=== PATIENT | male | born 1960 | race Caucasian/White ===

== ENCOUNTER 2016-09-09 13:06 | Inpatient (IN) | payer OTHER ==
[~2016-09-09] VITALS: Ht 172.7 cm; Wt 89.4 kg
[2016-09-09] MEDS ORDERED: fentaNYL PF VIAL 100 MCG/2 ML VIAL IV PRN ×2 (13:30→15:15)
[2016-09-09] MEDS ORDERED: fentaNYL PF VIAL 100 MCG/2 ML VIAL IV ONE ×2 (13:30→14:30)
--- NOTE | 2016-09-09 13:43 | RAD ---
Indication fall. Pain. AP oblique and lateral views of the right ankle were obtained. AP and lateral views of the remaining portion of the tibia and fibula were also obtained. There is a spiral, acute, traumatic fracture involving the distal tibial diaphysis. There is moderate distraction of fracture fragments. There is an oblique distracted fracture of the distal fibular diaphysis. The proximal tibia and fibula appear unremarkable. IMPRESSION: Distracted fractures of the distal tibial and fibular diaphysis.
[2016-09-09] MEDS ORDERED: IV NORMAL SALINE 1000ML BAG 1,000 ML IV SCH (15:00)
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
[2016-09-09 15:10] VITALS: BP 158/95
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
[2016-09-09] MEDS ORDERED: ONDANSETRON PF 4 MG/2 ML VIAL. IV PRN (15:15)
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
--- NOTE | 2016-09-09 15:37 | ACF ---
Admission Forms Criteria MUSCULOSKELETAL DISEASE GRG Clinical Indications for Admission to Inpatient Care (Place 'X' for any and all applicable criteria): Hospital admission is needed for appropriate care of the patient because of 1 or more of the following: [X ]I. Fracture, dislocation, or other musculoskeletal injury requiring inpatient care(medical) as indicated by 1 or more of the following(4)(5)(6)(7) [ ]a) Vertebral fracture requiring observation for instability or neurologic compromise (8) [ ]b) Compartment syndrome (proven or cannot be ruled out during observation level of care) (9) [ ]c) Limb-threatening injury [ ]d) Major injury requiring inpatient stabilization such as traction initiation or external fixation before internal fixation or closure of complex or open fracture [X ]e) Major injury requiring inpatient treatment after emergency or observation level care (as appropriate) [ ]f) Severe pain requiring acute inpatient management [ ]g) Injury with suspicion of abuse or neglect (eg., child, dependent elderly) [ ]II. Newly diagnosed or suspected bone, joint, or orthopedic device infection (e.g., osteomyelitis, septic arthritis) needing 1 or more of the following(1)(2)(3) [ ]a) IV antibiotics that cannot be initiated in other than inpatient setting (e.g., patient too unstable or home infusion not available) [ ]b) Device removal or replacement [ ]c) Bone or soft tissue debridement [ ]d) Joint drainage (drain placement or repetitive aspirations) [ ]III. Severe rheumatologic disease (e.g., systemic lupus erythematosus, rheumatoid arthritis) with complications or comorbidities (Also use Optimal Recovery Care Criteria or General Recovery Criteria as appropriate on the basis of predominant condition), including 1 or more of the following( 10)(11)(12)(13) [ ]a) Severe infection (e.g., PROPERTY ASSESSMENT MONITOR infection, sepsis) (14) [ ]b) Respiratory complications, including 1 or more of the following : [ ]i) Pleural effusion with respiratory compromise [ ]ii) Pulmonary hypertension with congestive failure [ ]iii) Respiratory failure [ ]iv) Pulmonary hemorrhage (15) [ ]c) Hematologic disease, including 1 or more of the following: [ ]i) Coagulopathy with bleeding [ ]ii) Thrombosis with hypercoagulable state [ ]iii) Thrombotic thrombocytopenic purpura [ ]d) Cerebritis with seizures, psychosis, or other severe abnormalities [ ]e) Vertebral destruction with monitoring needed for cervical myelopathy& possible respiratory compromise [ ]f) Exacerbation that requires inpatient treatment (e.g., intravenous immunosuppression) (16) [ ]g) Acute renal failure [ ]h) Cerebritis with seizures, psychosis, Altered mental status, or other neurologic abnormalities [ ]i) Pericardial effusion with tamponade [ ]j) Vertebral destruction, with monitoring needed for cervical myelopathy and possible respiratory compromise [ ]IV. Severe vasculitis with complications or comorbidities (Also use Optimal Recovery Care Criteria General Recovery Criteria as appropriate on the basis of predominant condition), including 1 or more of the following(11)(12)(17)(18)(19)(20) [ ]a) Exacerbation that requires inpatient treatment (e.g., intravenous immunosuppression) (19)(21) [ ]b) Pulmonary hemorrhage (15) [ ]c) PROPERTY ASSESSMENT MONITOR vasculitis with seizures, psychosis, Altered mental status that is severe or persistent, or other severe abnormalities (22) [ ]d) Cerebral infarction [ ]e) Gastrointestinal ischemia [ ]f) Gangrene or threatened amputation [ ]g) Renal failure (16) [ ]h) Other significant complications of vasculitis ( eg., tissue or organ ischemia, organ dysfunction ) [ ]V. Severe myopathy as indicated by 1 or more of the following (28)(29) [ ]a) New onset of airway compromise or inability to swallow [ ]b) Respiratory deterioration with observation needed for impending respiratory failure [ ]c) Exacerbation that requires inpatient treatment (e.g., intravenous immunosuppression) [ ]. Severe crystal gout (arthropathy) indicated by 1 or more of the following (23)(24) [ ]a) Severe pain requiring acute inpatient management [ ]b) Exacerbation that requires inpatient treatment (e.g., intravenous treatment) [ ]VII.Rhabdomyolysis and 1 or more of the following (25)(26)(27) [ ]a) Acute renal failure [ ]b) Need for intravenous hydration after emergency or observation level care (as appropriate) [ ]c) Inability to maintain oral hydration [ ]d) Change in mental status [ ]e) Electrolyte abnormality that remains after emergency or observation level care (as appropriate) [ ]VIII Post amputation complication, as indicated by ANY ONE of the following [ ]a) Infection [ ]b) Dehiscence [ ]c) Myodesis failure [ ]IX. Severe pain requiring acute inpatient management due to musculoskeletal condition [ ]X. Musculoskeletal Disease and ALL of the following: [ ]a) Symptom or finding for which emergency and observation care have failed or are not considered appropriate (Use General Criteria: Observation Care as appropriate) [ ]b) Presence of ANY ONE of the following [ ]i) A General Admission Criteria [ ]ii) A Pediatric General Admission Criteria The original [facility] [employer] content created by [facility] an [employer] has been revised. The portions of the content which have been revised are identified through the use of italic text or in bold, and [facility] has neither reviewed nor approved the modified material. All other unmodified content is copyright [facility] an [employer]. Please see references footnoted in the original [facility] [employer] edition 2016 Admission Criteria Met?: Yes ROBERTO DORSEY Sep 09, 2016 15:37
--- NOTE | 2016-09-09 15:37 | EKG ---
[facility] [address] [place] [address] Test Date: 2016-09-09 Test Time: 15:26:21 Pat Name: MILLIE DESIR Department: Room: Gender: M [employer] Operator: : [id number] Requested By: JORDEN ELIZABETH Order Number: [id number] Reading MD: Measurements Intervals [place] Rate: 98 P: 38 AK: 146 QRS: 28 QRSD: 90 T: 21 QT: 322 QTc: 413 Interpretive Statements SINUS RHYTHM RI6.01 Unconfirmed report No previous ECG available for comparison
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
[2016-09-09] MEDS ORDERED: BUPR200T2 PO (18:07)
[2016-09-09] MEDS ORDERED: ALBUTEROL SULFATE 2.5 MG/3 ML NEBU. NEB PRN (18:15)
[2016-09-09] MEDS ORDERED: ACETAMINOPHEN 325 MG TABLET. PO PRN (18:15)
[2016-09-09] MEDS ORDERED: hydrALAZINE 20 MG/ML VIAL. IVP PRN (18:15)
[2016-09-09] MEDS: IBUPROFEN 400 MG TABLET. PO PRN (18:25)
[2016-09-09] MEDS: MORPHINE SULFATE 4 MG/ML DISP.SYRIN. IV PRN (18:26)
[2016-09-09] MEDS: HYDROcodone/APAP 10/325 1 TAB TABLET PO PRN (18:27)
[2016-09-09 18:54] LABS: BASO % 0 % (0-3); EOS % 0 % (0-3); HEMOGLOBIN 15.3 g/dL (13.0-17.5); LYMPH # 1.3 x10^3/uL (1.0-4.8); LYMPH % 8 % (24-48); MEAN CORPUSCULAR HEMOGLOBIN 32 pg (25-35); MEAN CORPUSCULAR HGB CONC 35 g/dL (31-37); MEAN CORPUSCULAR VOLUME 93 fL (79-100); MONO % 14 % (0-9); NEUT % 78 % (31-73); PLATELET COUNT 278 x10^3/uL (140-400); RED BLOOD COUNT 4.72 x10^6/uL (4.30-5.70); RED CELL DISTRIBUTION WIDTH 12.4 % (11.5-14.5)
[2016-09-09 19:00] VITALS: BP 117/73
[2016-09-09 19:10] VITALS: BP 158/95
[2016-09-09 19:11] LABS: CALCIUM 9.1 mg/dL (8.5-10.1); CREATININE 1.1 mg/dL (0.7-1.3); GFR 69.8; POTASSIUM 4.3 mmol/L (3.5-5.1)
[2016-09-09 19:16] LABS: ALBUMIN 3.8 g/dL (3.4-5.0); ALBUMIN/GLOBULIN RATIO 1.1 (1.0-1.7); TOTAL BILIRUBIN 0.9 mg/dL (0.2-1.0); TOTAL PROTEIN 7.3 g/dL (6.4-8.2)
[2016-09-09 19:27] LABS: PLT ESTIMATE ADEQUATE (ADEQUATE)
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
[2016-09-09] MEDS ORDERED: ENOXAPARIN 40 MG/0.4 ML SYRINGE. SQ SCH (21:00)
[2016-09-09 23:00] VITALS: BP 131/71
[2016-09-10] VITALS (15 sets, daily range): BP systolic 105–149; BP diastolic 50–99
[2016-09-10 05:03] LABS: BASO % 0 % (0-3); EOS % 2 % (0-3); HEMATOCRIT 40.6 % (39.0-53.0); HEMOGLOBIN 13.7 g/dL (13.0-17.5); LYMPH # 2.1 x10^3/uL (1.0-4.8); LYMPH % 20 % (24-48); MEAN CORPUSCULAR HEMOGLOBIN 32 pg (25-35); MEAN CORPUSCULAR HGB CONC 34 g/dL (31-37); MEAN CORPUSCULAR VOLUME 95 fL (79-100); MONO % 19 % (0-9); NEUT % 59 % (31-73); PLATELET COUNT 234 x10^3/uL (140-400); RED BLOOD COUNT 4.25 x10^6/uL (4.30-5.70); RED CELL DISTRIBUTION WIDTH 12.3 % (11.5-14.5); WHITE BLOOD COUNT 10.9 x10^3/uL (4.0-11.0)
[2016-09-10 05:18] LABS: CALCIUM 8.3 mg/dL (8.5-10.1); GFR 77.9
[2016-09-10] MEDS: MORPHINE SULFATE 4 MG/ML DISP.SYRIN. IV PRN ×5 (05:42→20:41)
[2016-09-10] MEDS ORDERED: MORPHINE SULFATE 2 MG/ML DISP.SYRIN. IV PRN (07:00)
[2016-09-10] MEDS ORDERED: LIDOCAINE 1% 1 ML SYRINGE. ID PRN (07:00)
[2016-09-10] MEDS ORDERED: ONDANSETRON PF 4 MG/2 ML VIAL. IV PRN (07:00)
[2016-09-10] MEDS ORDERED: HYDROmorphone 2 MG/ML VIAL IV PRN (07:00)
[2016-09-10] MEDS ORDERED: PROCHLORPERAZINE 10 MG/2 ML VIAL. IV PRN (07:00)
[2016-09-10] MEDS ORDERED: fentaNYL PF VIAL 100 MCG/2 ML VIAL IV PRN ×2 (07:00)
[2016-09-10] MEDS ORDERED: IV RINGERS,LACTATED 1000ML 1,000 ML IV SCH (07:00)
[2016-09-10] MEDS ORDERED: BUPIVACAINE MPF 0.5% 30 ML VIAL. ONE (07:35)
[2016-09-10] MEDS ORDERED: LIDOCAINE 1% PF 30 ML VIAL. ONE (07:35)
[2016-09-10] MEDS ORDERED: FAMOTIDINE 20 MG/2 ML VIAL ONE (10:08)
[2016-09-10] MEDS ORDERED: DEXAMETHASONE SOD PHOS 20 MG/5 ML VIAL. ONE (10:08)
[2016-09-10] MEDS ORDERED: fentaNYL PF VIAL 100 MCG/2 ML VIAL ONE (10:08)
[2016-09-10] MEDS ORDERED: ONDANSETRON PF 4 MG/2 ML VIAL. ONE (10:08)
[2016-09-10] MEDS ORDERED: PROPOFOL 20 ML IV ONE (10:08)
[2016-09-10] MEDS ORDERED: MIDAZOLAM HCL/PF 2 MG/2 ML VIAL. ONE (10:08)
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
[2016-09-10] MEDS ORDERED: oxyCODONE/APAP 5/325 1 TAB TABLET PO PRN (10:45)
[2016-09-10] MEDS ORDERED: MORPHINE SULFATE 10 MG/ML VIAL. ONE (11:16)
--- NOTE | 2016-09-10 12:04 | PDOC ---
PROGRESS NOTES Chief Complaint Chief Complaint 1. R Tibfib fracture, closed 2. Chest wall contusio 3. Head injury 4. Laceration of eyebrow 5. Laceration of scalp 6. Depression History of Present Illness History of Present Illness pt is resting comfortably in bed this morning, he denies any complaints, his surgery is planned for this morning, fundraising officer is in room with him Vitals Vitals Vital Signs Date Time Temp Pulse Resp B/P (MAP) Pulse Ox O2 Delivery O2 Flow Rate FiO2 09/10/16 11:00 98.5 90 20 124/91 (102) 97 Nasal Cannula 1.0 98.5 Physical Exam General: Alert, Oriented X3, Cooperative, No acute distress Heart: Regular rate, No murmurs Lungs: Clear Abdomen: Normal bowel sounds, Soft, No tenderness Extremities: No clubbing, No cyanosis, No edema Skin: No rashes, No breakdown, No significant lesion Labs LABS Laboratory Tests Test 09/09/16 18:00 09/09/16 20:40 09/10/16 04:20 09/10/16 07:41 White Blood Count 17.0 x10^3/uL (4.0-11.0) 10.9 x10^3/uL (4.0-11.0) Red Blood Count 4.72 x10^6/uL (4.30-5.70) 4.25 x10^6/uL (4.30-5.70) Hemoglobin 15.3 g/dL (13.0-17.5) 13.7 g/dL (13.0-17.5) Hematocrit 44.0 % (39.0-53.0) 40.6 % (39.0-53.0) Mean Corpuscular Volume 93 fL (79-100) 95 fL (79-100) Mean Corpuscular Hemoglobin 32 pg (25-35) 32 pg (25-35) Mean Corpuscular Hemoglobin Concent 35 g/dL (31-37) 34 g/dL (31-37) Red Cell Distribution Width 12.4 % (11.5-14.5) 12.3 % (11.5-14.5) Platelet Count 278 x10^3/uL (140-400) 234 x10^3/uL (140-400) Neutrophils (%) (Auto) 78 % (31-73) 59 % (31-73) Lymphocytes (%) (Auto) 8 % (24-48) 20 % (24-48) Monocytes (%) (Auto) 14 % (0-9) 19 % (0-9) Eosinophils (%) (Auto) 0 % (0-3) 2 % (0-3) Basophils (%) (Auto) 0 % (0-3) 0 % (0-3) Neutrophils # (Auto) 13.3 x10^3uL (1.8-7.7) 6.5 x10^3uL (1.8-7.7) Lymphocytes # (Auto) 1.3 x10^3/uL (1.0-4.8) 2.1 x10^3/uL (1.0-4.8) Monocytes # (Auto) 2.3 x10^3/uL (0.0-1.1) 2.1 x10^3/uL (0.0-1.1) Eosinophils # (Auto) 0.0 x10^3/uL (0.0-0.7) 0.2 x10^3/uL (0.0-0.7) Basophils # (Auto) 0.0 x10^3/uL (0.0-0.2) 0.0 x10^3/uL (0.0-0.2) Segmented Neutrophils % 80 % (35-66) Band Neutrophils % 1 % (0-9) Lymphocytes % 10 % (24-48) Monocytes % 9 % (0-10) Platelet Estimate Adequate (ADEQUATE) Sodium Level 143 mmol/L (136-145) 142 mmol/L (136-145) Potassium Level 4.3 mmol/L (3.5-5.1) 4.0 mmol/L (3.5-5.1) Chloride Level 105 mmol/L (98-107) 106 mmol/L (98-107) Carbon Dioxide Level 30 mmol/L (21-32) 32 mmol/L (21-32) Anion Gap 8 (6-14) 4 (6-14) Blood Urea Nitrogen 15 mg/dL (8-26) 16 mg/dL (8-26) Creatinine 1.1 mg/dL (0.7-1.3) 1.0 mg/dL (0.7-1.3) Estimated GFR (Cockcroft-Gault) 69.8 77.9 BUN/Creatinine Ratio 14 (6-20) Glucose Level 113 mg/dL (70-99) 114 mg/dL (70-99) Calcium Level 9.1 mg/dL (8.5-10.1) 8.3 mg/dL (8.5-10.1) Total Bilirubin 0.9 mg/dL (0.2-1.0) Aspartate Amino Transf (AST/SGOT) 80 U/L (15-37) Alanine Aminotransferase (ALT/SGPT) 78 U/L (16-63) Alkaline Phosphatase 101 U/L (46-116) Total Protein 7.3 g/dL (6.4-8.2) Albumin 3.8 g/dL (3.4-5.0) Albumin/Globulin Ratio 1.1 (1.0-1.7) Glucose (Fingerstick) 117 mg/dL (70-99) 109 mg/dL (70-99) Review of Systems Review of Systems denies nausea, vomiting, or HORNE Assessment and Plan Assessmemt and Plan Assessment 1. R Tibfib fracture, closed 2. Chest wall contusio 3. Head injury 4. Laceration of eyebrow 5. Laceration of scalp 6. Depression Plan 1. Surgery for fracture today 2. Lovenox for DVT prophylaxis 3. Continue pain management 4. Appreciate subspecialty input 5. Continue home meds 6. Discussed plan of care with nursing 7. PT/OT 8. Recheck CBC and BMP tomorrow 9. Reviewed imaging: CXR and head CT showed no acute processes, R ankle and tib/ fib XR showed distracted fractures of the distal tibial and fibular diaphysis. 10. Zofran prn for nausea Problems: Comment Review of Relevant I have reviewed the following items sirena (where applicable) has been applied. Labs Laboratory Tests Test 09/09/16 18:00 09/09/16 20:40 09/10/16 04:20 09/10/16 07:41 White Blood Count 17.0 x10^3/uL (4.0-11.0) 10.9 x10^3/uL (4.0-11.0) Red Blood Count 4.72 x10^6/uL (4.30-5.70) 4.25 x10^6/uL (4.30-5.70) Hemoglobin 15.3 g/dL (13.0-17.5) 13.7 g/dL (13.0-17.5) Hematocrit 44.0 % (39.0-53.0) 40.6 % (39.0-53.0) Mean Corpuscular Volume 93 fL (79-100) 95 fL (79-100) Mean Corpuscular Hemoglobin 32 pg (25-35) 32 pg (25-35) Mean Corpuscular Hemoglobin Concent 35 g/dL (31-37) 34 g/dL (31-37) Red Cell Distribution Width 12.4 % (11.5-14.5) 12.3 % (11.5-14.5) Platelet Count 278 x10^3/uL (140-400) 234 x10^3/uL (140-400) Neutrophils (%) (Auto) 78 % (31-73) 59 % (31-73) Lymphocytes (%) (Auto) 8 % (24-48) 20 % (24-48) Monocytes (%) (Auto) 14 % (0-9) 19 % (0-9) Eosinophils (%) (Auto) 0 % (0-3) 2 % (0-3) Basophils (%) (Auto) 0 % (0-3) 0 % (0-3) Neutrophils # (Auto) 13.3 x10^3uL (1.8-7.7) 6.5 x10^3uL (1.8-7.7) Lymphocytes # (Auto) 1.3 x10^3/uL (1.0-4.8) 2.1 x10^3/uL (1.0-4.8) Monocytes # (Auto) 2.3 x10^3/uL (0.0-1.1) 2.1 x10^3/uL (0.0-1.1) Eosinophils # (Auto) 0.0 x10^3/uL (0.0-0.7) 0.2 x10^3/uL (0.0-0.7) Basophils # (Auto) 0.0 x10^3/uL (0.0-0.2) 0.0 x10^3/uL (0.0-0.2) Segmented Neutrophils % 80 % (35-66) Band Neutrophils % 1 % (0-9) Lymphocytes % 10 % (24-48) Monocytes % 9 % (0-10) Platelet Estimate Adequate (ADEQUATE) Sodium Level 143 mmol/L (136-145) 142 mmol/L (136-145) Potassium Level 4.3 mmol/L (3.5-5.1) 4.0 mmol/L (3.5-5.1) Chloride Level 105 mmol/L (98-107) 106 mmol/L (98-107) Carbon Dioxide Level 30 mmol/L (21-32) 32 mmol/L (21-32) Anion Gap 8 (6-14) 4 (6-14) Blood Urea Nitrogen 15 mg/dL (8-26) 16 mg/dL (8-26) Creatinine 1.1 mg/dL (0.7-1.3) 1.0 mg/dL (0.7-1.3) Estimated GFR (Cockcroft-Gault) 69.8 77.9 BUN/Creatinine Ratio 14 (6-20) Glucose Level 113 mg/dL (70-99) 114 mg/dL (70-99) Calcium Level 9.1 mg/dL (8.5-10.1) 8.3 mg/dL (8.5-10.1) Total Bilirubin 0.9 mg/dL (0.2-1.0) Aspartate Amino Transf (AST/SGOT) 80 U/L (15-37) Alanine Aminotransferase (ALT/SGPT) 78 U/L (16-63) Alkaline Phosphatase 101 U/L (46-116) Total Protein 7.3 g/dL (6.4-8.2) Albumin 3.8 g/dL (3.4-5.0) Albumin/Globulin Ratio 1.1 (1.0-1.7) Glucose (Fingerstick) 117 mg/dL (70-99) 109 mg/dL (70-99) Laboratory Tests Test 09/09/16 18:00 09/09/16 20:40 09/10/16 04:20 09/10/16 07:41 White Blood Count 17.0 x10^3/uL (4.0-11.0) 10.9 x10^3/uL (4.0-11.0) Red Blood Count 4.72 x10^6/uL (4.30-5.70) 4.25 x10^6/uL (4.30-5.70) Hemoglobin 15.3 g/dL (13.0-17.5) 13.7 g/dL (13.0-17.5) Hematocrit 44.0 % (39.0-53.0) 40.6 % (39.0-53.0) Mean Corpuscular Volume 93 fL (79-100) 95 fL (79-100) Mean Corpuscular Hemoglobin 32 pg (25-35) 32 pg (25-35) Mean Corpuscular Hemoglobin Concent 35 g/dL (31-37) 34 g/dL (31-37) Red Cell Distribution Width 12.4 % (11.5-14.5) 12.3 % (11.5-14.5) Platelet Count 278 x10^3/uL (140-400) 234 x10^3/uL (140-400) Neutrophils (%) (Auto) 78 % (31-73) 59 % (31-73) Lymphocytes (%) (Auto) 8 % (24-48) 20 % (24-48) Monocytes (%) (Auto) 14 % (0-9) 19 % (0-9) Eosinophils (%) (Auto) 0 % (0-3) 2 % (0-3) Basophils (%) (Auto) 0 % (0-3) 0 % (0-3) Neutrophils # (Auto) 13.3 x10^3uL (1.8-7.7) 6.5 x10^3uL (1.8-7.7) Lymphocytes # (Auto) 1.3 x10^3/uL (1.0-4.8) 2.1 x10^3/uL (1.0-4.8) Monocytes # (Auto) 2.3 x10^3/uL (0.0-1.1) 2.1 x10^3/uL (0.0-1.1) Eosinophils # (Auto) 0.0 x10^3/uL (0.0-0.7) 0.2 x10^3/uL (0.0-0.7) Basophils # (Auto) 0.0 x10^3/uL (0.0-0.2) 0.0 x10^3/uL (0.0-0.2) Segmented Neutrophils % 80 % (35-66) Band Neutrophils % 1 % (0-9) Lymphocytes % 10 % (24-48) Monocytes % 9 % (0-10) Platelet Estimate Adequate (ADEQUATE) Sodium Level 143 mmol/L (136-145) 142 mmol/L (136-145) Potassium Level 4.3 mmol/L (3.5-5.1) 4.0 mmol/L (3.5-5.1) Chloride Level 105 mmol/L (98-107) 106 mmol/L (98-107) Carbon Dioxide Level 30 mmol/L (21-32) 32 mmol/L (21-32) Anion Gap 8 (6-14) 4 (6-14) Blood Urea Nitrogen 15 mg/dL (8-26) 16 mg/dL (8-26) Creatinine 1.1 mg/dL (0.7-1.3) 1.0 mg/dL (0.7-1.3) Estimated GFR (Cockcroft-Gault) 69.8 77.9 BUN/Creatinine Ratio 14 (6-20) Glucose Level 113 mg/dL (70-99) 114 mg/dL (70-99) Calcium Level 9.1 mg/dL (8.5-10.1) 8.3 mg/dL (8.5-10.1) Total Bilirubin 0.9 mg/dL (0.2-1.0) Aspartate Amino Transf (AST/SGOT) 80 U/L (15-37) Alanine Aminotransferase (ALT/SGPT) 78 U/L (16-63) Alkaline Phosphatase 101 U/L (46-116) Total Protein 7.3 g/dL (6.4-8.2) Albumin 3.8 g/dL (3.4-5.0) Albumin/Globulin Ratio 1.1 (1.0-1.7) Glucose (Fingerstick) 117 mg/dL (70-99) 109 mg/dL (70-99) Medications Current Medications Fentanyl Citrate (Fentanyl 2ml Vial) 100 mcg 1X ONCE IV Last administered on t 13:41; Start 09/09/16 at 13:30; Stop 09/09/16 at 13:31; Status DC Fentanyl Citrate (Fentanyl 2ml Vial) 50 mcg PRN Q15MIN PRN IV PAIN GREATER THAN 3/10; Start 09/09/16 at 13:30; Stop 09/10/16 at 13:29 Fentanyl Citrate (Fentanyl 2ml Vial) 100 mcg 1X ONCE IV Last administered on 14:25; Start 09/09/16 at 14:30; Stop 09/09/16 at 14:31; Status DC Sodium Chloride 1,000 ml @ 100 mls/hr Q10H IV Last administered on 09/09/16 15 :50; Start 09/09/16 at 15:00; Stop 09/10/16 at 00:59; Status DC Ondansetron HCl (Zofran) 4 mg PRN Q8HRS PRN IV NAUSEA/VOMITING; Start 09/09/16 at 15:15; Stop 09/10/16 at 15:14 Fentanyl Citrate (Fentanyl 2ml Vial) 50 mcg PRN Q2HR PRN IV PAIN Last administered on 09/09/16 17:25; Start 09/09/16 at 15:15; Stop 09/09/16 at 18:03; Status DC Ondansetron HCl (Zofran) 4 mg PRN Q6HRS PRN IV NAUSEA/VOMITING; Start 09/10/16 at 07:00; Stop 09/11/16 at 06:59 Fentanyl Citrate (Fentanyl 2ml Vial) 25 mcg PRN Q5MIN PRN IV MILD PAIN; Start 09/10/16 at 07:00; Stop 09/11/16 at 06:59 Fentanyl Citrate (Fentanyl 2ml Vial) 50 mcg PRN Q5MIN PRN IV MODERATE PAIN; Start 09/10/16 at 07:00; Stop 09/11/16 at 06:59 Morphine Sulfate 1 mg PRN Q10MIN PRN IV SEVERE PAIN; Start 09/10/16 at 07:00; Stop 09/11/16 at 06:59 Ringer's Solution 1,000 ml @ 30 mls/hr Q24H IV ; Start 09/10/16 at 07:00; Stop 09/10/16 at 18:59 Lidocaine HCl 2 ml PRN 1X PRN ID PRIOR TO IV START; Start 09/10/16 at 07:00; Stop 09/11/16 at 06:59 Hydromorphone HCl (Dilaudid) 0.5 mg PRN Q10MIN PRN IV SEV PAIN, Second choice; Start 09/10/16 at 07:00; Stop 09/11/16 at 06:59 Prochlorperazine Edisylate (Compazine) 5 mg PACU PRN PRN IV NAUSEA, MRX1; Start 09/10/16 at 07:00; Stop 09/11/16 at 06:59 Ibuprofen (Motrin) 400 mg PRN Q6HRS PRN PO INFLAMMATION Last administered on 18:25; Start 09/09/16 at 18:00 Acetaminophen/ Hydrocodone Bitart (Lortab 10/325) 1 tab PRN Q6HRS PRN PO PAIN Last administered on 09/09/16 18:27; Start 09/09/16 at 18:00 Morphine Sulfate 4 mg PRN Q2HR PRN IV PAIN Last administered on 09/10/16 08:52 ; Start 09/09/16 at 18:00 Acetaminophen (Tylenol) 325 mg PRN Q6HRS PRN PO MILD PAIN / TEMP; Start at 18:15 Hydralazine HCl (Apresoline) 10 mg PRN Q4HRS PRN IVP ELEVATED BP, SEE COMMENTS ; Start 09/09/16 at 18:15 Ondansetron HCl (Zofran) 4 mg PRN Q8HRS PRN IV NAUSEA/VOMITING; Start 09/09/16 at 18:15 Albuterol Sulfate (Ventolin Neb Soln) 2.5 mg PRN Q4HRS PRN NEB SHORTNESS OF BREATH; Start 09/09/16 at 18:15 Enoxaparin Sodium (Lovenox 40mg Syringe) 40 mg Q24H SQ ; Start 09/09/16 at 21:00 ; Status Cancel Cefazolin Sodium 50 ml @ 100 mls/hr 1X ONCE IV Last administered on 09/10/16 10:57; Start 09/10/16 at 06:00; Stop 09/10/16 at 06:29; Status DC Lidocaine HCl 30 ml STK-MED ONCE .ROUTE Last administered on 09/10/16 11:16; Start 09/10/16 at 07:35; Stop 09/10/16 at 07:36; Status DC Bupivacaine HCl (Sensorcaine Mpf 0.5%) 30 ml STK-MED ONCE .ROUTE Last administered on 09/10/16t 11:16; Start 09/10/16 at 07:35; Stop 09/10/16 at 07:36; Status DC Dexamethasone Sodium Phosphate (Decadron) 20 mg STK-MED ONCE .ROUTE ; Start 09/10 at 10:08; Stop 09/10/16 at 10:09; Status DC Famotidine (Pepcid) 20 mg STK-MED ONCE .ROUTE ; Start 09/10/16 at 10:08; Stop 09/10/16 at 10:09; Status DC Ondansetron HCl (Zofran) 4 mg STK-MED ONCE .ROUTE ; Start 09/10/16 at 10:08; Stop 09/10/16 at 10:09; Status DC Propofol 20 ml @ As Directed STK-MED ONCE IV ; Start 09/10/16 at 10:08; Stop 09/10 at 10:09; Status DC Midazolam HCl (Versed) 2 mg STK-MED ONCE .ROUTE ; Start 09/10/16 at 10:08; Stop 09/10/16 at 10:09; Status DC Fentanyl Citrate (Fentanyl 2ml Vial) 100 mcg STK-MED ONCE .ROUTE ; Start at 10:08; Stop 09/10/16 at 10:09; Status DC Cefazolin Sodium 50 ml @ As Directed STK-MED ONCE IV ; Start 09/10/16 at 10:29; Stop 09/10/16 at 10:30; Status DC Oxycodone/ Acetaminophen (Percocet 5/325) 1 tab PRN Q4HRS PRN PO PAIN; Start at 10:45 Senna/Docusate Sodium (Senna Plus) 1 tab PRN BID PRN PO CONSTIPATION; Start 09/10/16 at 10:45 Enoxaparin Sodium (Lovenox 40mg Syringe) 40 mg Q24H SQ ; Start 09/11/16 at 11:00 Cefazolin Sodium/ Dextrose 50 ml @ 100 mls/hr Q6H IV ; Start 09/10/16 at 16:00; Stop 09/11/16 at 04:29 Morphine Sulfate 10 mg STK-MED ONCE .ROUTE ; Start 09/10/16 at 11:16; Stop 7/8/ 17 at 11:17; Status DC Active Scripts Active Reported Wellbutrin Sr (Bupropion Hcl) 200 Mg Tablet.er 400 Mg PO DAILY Vitals/I & O Vital Sign - Last 24 Hours 09/09/16 09/09/16 09/09/16 09/09/16 13:06 13:40 13:41 14:10 Temp 98.4 98.4 Pulse 96 98 96 Resp 18 26 18 22 B/P (MAP) 160/98 (118) 139/84 (102) 156/96 (116) Pulse Ox 97 100 99 O2 Delivery Room Air 09/09/16 09/09/16 09/09/16 09/09/16 14:11 14:25 14:40 14:45 Pulse 94 98 Resp 16 16 16 33 B/P (MAP) 169/91 (117) 153/88 (109) Pulse Ox 98 99 09/09/16 09/09/16 09/09/16 09/09/16 15:10 17:10 17:15 17:25 Temp 98.3 98.3 Pulse 97 Resp 20 B/P (MAP) 158/95 (116) Pulse Ox 94 O2 Delivery Nasal Cannula Room Air Nasal Cannula Room Air O2 Flow Rate 1.0 1.0 09/09/16 09/09/16 09/09/16 09/09/16 18:26 18:27 18:27 18:56 Resp 16 Pulse Ox 97 O2 Delivery Nasal Cannula Nasal Cannula Nasal Cannula Nasal Cannula O2 Flow Rate 1.0 1.0 09/09/16 09/09/16 09/09/16 09/09/16 19:00 19:10 19:27 20:00 Temp 99.1 98.3 99.1 98.3 Pulse 92 97 Resp 18 16 B/P (MAP) 117/73 (88) 158/95 (116) Pulse Ox 96 94 97 O2 Delivery Nasal Cannula Nasal Cannula Nasal Cannula Nasal Cannula O2 Flow Rate 1.0 1.0 1.0 1.0 09/09/16 09/09/16 09/10/16 09/10/16 20:27 23:00 03:05 06:36 Temp 98.5 98.4 98.5 98.4 Pulse 79 82 Resp 18 16 16 B/P (MAP) 131/71 (91) 135/84 (101) Pulse Ox 97 95 94 94 O2 Delivery Room Air Nasal Cannula Nasal Cannula Nasal Cannula O2 Flow Rate 1.0 1.0 09/10/16 09/10/16 09/10/16 09/10/16 07:00 08:30 08:52 10:42 Temp 98.6 99.4 98.6 99.4 Pulse 86 88 Resp 20 16 20 B/P (MAP) 124/75 (91) 117/69 Pulse Ox 92 99 O2 Delivery Nasal Cannula Room Air Room Air Room Air O2 Flow Rate 1.0 09/10/16 11:00 Temp 98.5 98.5 Pulse 90 Resp 20 B/P (MAP) 124/91 (102) Pulse Ox 97 O2 Delivery Nasal Cannula O2 Flow Rate 1.0 Intake and Output 09/09/16 09/09/16 09/10/16 15:00 23:00 07:00 Intake Total 200 ml Balance 200 ml RUSTY MILLS III DO Sep 10, 2016 12:04
[2016-09-10] MEDS: IBUPROFEN 400 MG TABLET. PO PRN (16:21)
[2016-09-10] MEDS: ONDANSETRON PF 4 MG/2 ML VIAL. IV PRN (16:21)
[2016-09-11 03:00] VITALS: BP 91/45
[2016-09-11 05:25] LABS: BASO % 0 % (0-3); EOS % 0 % (0-3); HEMATOCRIT 35.3 % (39.0-53.0); HEMOGLOBIN 12.5 g/dL (13.0-17.5); LYMPH # 1.4 x10^3/uL (1.0-4.8); LYMPH % 11 % (24-48); MEAN CORPUSCULAR HEMOGLOBIN 33 pg (25-35); MEAN CORPUSCULAR HGB CONC 35 g/dL (31-37); MEAN CORPUSCULAR VOLUME 93 fL (79-100); MONO % 17 % (0-9); NEUT % 72 % (31-73); PLATELET COUNT 231 x10^3/uL (140-400); RED BLOOD COUNT 3.79 x10^6/uL (4.30-5.70); RED CELL DISTRIBUTION WIDTH 12.2 % (11.5-14.5); WHITE BLOOD COUNT 12.9 x10^3/uL (4.0-11.0)
[2016-09-11 05:58] LABS: CALCIUM 9.1 mg/dL (8.5-10.1); CREATININE 0.9 mg/dL (0.7-1.3); GFR 87.9; POTASSIUM 4.8 mmol/L (3.5-5.1)
[2016-09-11] MEDS: HYDROcodone/APAP 10/325 1 TAB TABLET PO PRN (05:58)
[2016-09-11 07:00] VITALS: BP 106/73
[2016-09-11] MEDS: MORPHINE SULFATE 4 MG/ML DISP.SYRIN. IV PRN (08:10)
[2016-09-11] MEDS: IBUPROFEN 400 MG TABLET. PO PRN ×3 (08:10→20:45)
[2016-09-11] MEDS: SENNOSIDES/DOCUSATE 8.6/50MG TABLET. PO PRN (09:52)
[2016-09-11] MEDS: oxyCODONE/APAP 5/325 1 TAB TABLET PO PRN ×4 (09:53→22:19)
--- NOTE | 2016-09-11 09:53 | PDOC ---
ORTHO PROGRESS NOTES Subjective Pain doing ok, using IV. No other complaints. Vitals Vital Signs Date Time Temp Pulse Resp B/P (MAP) Pulse Ox O2 Delivery O2 Flow Rate FiO2 09/11/16 08:48 16 Room Air 09/11/16 07:00 97.3 89 106/73 (84) 95 97.3 09/11/16 03:00 3.0 Labs Laboratory Tests Test 09/09/16 18:00 09/09/16 18:30 09/09/16 20:40 09/10/16 04:20 White Blood Count 17.0 x10^3/uL (4.0-11.0) 10.9 x10^3/uL (4.0-11.0) Red Blood Count 4.72 x10^6/uL (4.30-5.70) 4.25 x10^6/uL (4.30-5.70) Hemoglobin 15.3 g/dL (13.0-17.5) 13.7 g/dL (13.0-17.5) Hematocrit 44.0 % (39.0-53.0) 40.6 % (39.0-53.0) Mean Corpuscular Volume 93 fL (79-100) 95 fL (79-100) Mean Corpuscular Hemoglobin 32 pg (25-35) 32 pg (25-35) Mean Corpuscular Hemoglobin Concent 35 g/dL (31-37) 34 g/dL (31-37) Red Cell Distribution Width 12.4 % (11.5-14.5) 12.3 % (11.5-14.5) Platelet Count 278 x10^3/uL (140-400) 234 x10^3/uL (140-400) Neutrophils (%) (Auto) 78 % (31-73) 59 % (31-73) Lymphocytes (%) (Auto) 8 % (24-48) 20 % (24-48) Monocytes (%) (Auto) 14 % (0-9) 19 % (0-9) Eosinophils (%) (Auto) 0 % (0-3) 2 % (0-3) Basophils (%) (Auto) 0 % (0-3) 0 % (0-3) Neutrophils # (Auto) 13.3 x10^3uL (1.8-7.7) 6.5 x10^3uL (1.8-7.7) Lymphocytes # (Auto) 1.3 x10^3/uL (1.0-4.8) 2.1 x10^3/uL (1.0-4.8) Monocytes # (Auto) 2.3 x10^3/uL (0.0-1.1) 2.1 x10^3/uL (0.0-1.1) Eosinophils # (Auto) 0.0 x10^3/uL (0.0-0.7) 0.2 x10^3/uL (0.0-0.7) Basophils # (Auto) 0.0 x10^3/uL (0.0-0.2) 0.0 x10^3/uL (0.0-0.2) Segmented Neutrophils % 80 % (35-66) Band Neutrophils % 1 % (0-9) Lymphocytes % 10 % (24-48) Monocytes % 9 % (0-10) Platelet Estimate Adequate (ADEQUATE) Sodium Level 143 mmol/L (136-145) 142 mmol/L (136-145) Potassium Level 4.3 mmol/L (3.5-5.1) 4.0 mmol/L (3.5-5.1) Chloride Level 105 mmol/L (98-107) 106 mmol/L (98-107) Carbon Dioxide Level 30 mmol/L (21-32) 32 mmol/L (21-32) Anion Gap 8 (6-14) 4 (6-14) Blood Urea Nitrogen 15 mg/dL (8-26) 16 mg/dL (8-26) Creatinine 1.1 mg/dL (0.7-1.3) 1.0 mg/dL (0.7-1.3) Estimated GFR (Cockcroft-Gault) 69.8 77.9 BUN/Creatinine Ratio 14 (6-20) Glucose Level 113 mg/dL (70-99) 114 mg/dL (70-99) Calcium Level 9.1 mg/dL (8.5-10.1) 8.3 mg/dL (8.5-10.1) Total Bilirubin 0.9 mg/dL (0.2-1.0) Aspartate Amino Transf (AST/SGOT) 80 U/L (15-37) Alanine Aminotransferase (ALT/SGPT) 78 U/L (16-63) Alkaline Phosphatase 101 U/L (46-116) Total Protein 7.3 g/dL (6.4-8.2) Albumin 3.8 g/dL (3.4-5.0) Albumin/Globulin Ratio 1.1 (1.0-1.7) Nasal Screen MRSA (PCR) Negative (Negative) Glucose (Fingerstick) 117 mg/dL (70-99) Test 09/10/16 07:41 09/10/16 13:33 09/10/16 17:03 09/10/16 20:22 Glucose (Fingerstick) 109 mg/dL (70-99) 128 mg/dL (70-99) 135 mg/dL (70-99) 145 mg/dL (70-99) Test 09/11/16 04:40 09/11/16 07:13 White Blood Count 12.9 x10^3/uL (4.0-11.0) Red Blood Count 3.79 x10^6/uL (4.30-5.70) Hemoglobin 12.5 g/dL (13.0-17.5) Hematocrit 35.3 % (39.0-53.0) Mean Corpuscular Volume 93 fL (79-100) Mean Corpuscular Hemoglobin 33 pg (25-35) Mean Corpuscular Hemoglobin Concent 35 g/dL (31-37) Red Cell Distribution Width 12.2 % (11.5-14.5) Platelet Count 231 x10^3/uL (140-400) Neutrophils (%) (Auto) 72 % (31-73) Lymphocytes (%) (Auto) 11 % (24-48) Monocytes (%) (Auto) 17 % (0-9) Eosinophils (%) (Auto) 0 % (0-3) Basophils (%) (Auto) 0 % (0-3) Neutrophils # (Auto) 9.3 x10^3uL (1.8-7.7) Lymphocytes # (Auto) 1.4 x10^3/uL (1.0-4.8) Monocytes # (Auto) 2.2 x10^3/uL (0.0-1.1) Eosinophils # (Auto) 0.0 x10^3/uL (0.0-0.7) Basophils # (Auto) 0.0 x10^3/uL (0.0-0.2) Sodium Level 139 mmol/L (136-145) Potassium Level 4.8 mmol/L (3.5-5.1) Chloride Level 103 mmol/L (98-107) Carbon Dioxide Level 28 mmol/L (21-32) Anion Gap 8 (6-14) Blood Urea Nitrogen 15 mg/dL (8-26) Creatinine 0.9 mg/dL (0.7-1.3) Estimated GFR (Cockcroft-Gault) 87.9 Glucose Level 129 mg/dL (70-99) Calcium Level 9.1 mg/dL (8.5-10.1) Glucose (Fingerstick) 142 mg/dL (70-99) Laboratory Tests Test 09/10/16 13:33 09/10/16 17:03 09/10/16 20:22 09/11/16 04:40 Glucose (Fingerstick) 128 mg/dL (70-99) 135 mg/dL (70-99) 145 mg/dL (70-99) White Blood Count 12.9 x10^3/uL (4.0-11.0) Red Blood Count 3.79 x10^6/uL (4.30-5.70) Hemoglobin 12.5 g/dL (13.0-17.5) Hematocrit 35.3 % (39.0-53.0) Mean Corpuscular Volume 93 fL (79-100) Mean Corpuscular Hemoglobin 33 pg (25-35) Mean Corpuscular Hemoglobin Concent 35 g/dL (31-37) Red Cell Distribution Width 12.2 % (11.5-14.5) Platelet Count 231 x10^3/uL (140-400) Neutrophils (%) (Auto) 72 % (31-73) Lymphocytes (%) (Auto) 11 % (24-48) Monocytes (%) (Auto) 17 % (0-9) Eosinophils (%) (Auto) 0 % (0-3) Basophils (%) (Auto) 0 % (0-3) Neutrophils # (Auto) 9.3 x10^3uL (1.8-7.7) Lymphocytes # (Auto) 1.4 x10^3/uL (1.0-4.8) Monocytes # (Auto) 2.2 x10^3/uL (0.0-1.1) Eosinophils # (Auto) 0.0 x10^3/uL (0.0-0.7) Basophils # (Auto) 0.0 x10^3/uL (0.0-0.2) Sodium Level 139 mmol/L (136-145) Potassium Level 4.8 mmol/L (3.5-5.1) Chloride Level 103 mmol/L (98-107) Carbon Dioxide Level 28 mmol/L (21-32) Anion Gap 8 (6-14) Blood Urea Nitrogen 15 mg/dL (8-26) Creatinine 0.9 mg/dL (0.7-1.3) Estimated GFR (Cockcroft-Gault) 87.9 Glucose Level 129 mg/dL (70-99) Calcium Level 9.1 mg/dL (8.5-10.1) Test 09/11/16 07:13 Glucose (Fingerstick) 142 mg/dL (70-99) Notes A and A in bed RLE: compartments soft, no pain with PROM wiggles toes, SITLT Assessment and Plan WBAT with walker, PT/OT lovenox percocet, try to wean IV pain meds likely ok to go tomorrow RIGOBERTO ELLIOTT II, MD Sep 11, 2016 09:53
[2016-09-11] MEDS: buPROPion SR 100 MG TABLET.SA. PO SCH (10:48)
[2016-09-11] MEDS: ENOXAPARIN 40 MG/0.4 ML SYRINGE. SQ SCH (10:49)
[2016-09-11 11:00] VITALS: BP 117/72
--- NOTE | 2016-09-11 12:30 | PDOC ---
PROGRESS NOTES Chief Complaint Chief Complaint 1. R Tibfib fracture, closed 2. Chest wall contusio 3. Head injury 4. Laceration of eyebrow 5. Laceration of scalp 6. Depression History of Present Illness History of Present Illness pt is lying comfortably in bed this morning, he had surgery yesterday, he denies any complaints and states his pain is being managed well currently Vitals Vitals Vital Signs Date Time Temp Pulse Resp B/P (MAP) Pulse Ox O2 Delivery O2 Flow Rate FiO2 09/11/16 11:00 98.1 91 20 117/72 (87) 97 Room Air 98.1 09/11/16 03:00 3.0 Physical Exam General: Alert, Oriented X3, Cooperative, No acute distress Heart: Regular rate, No murmurs Lungs: Clear Abdomen: Normal bowel sounds, Soft, No tenderness Extremities: No clubbing, No cyanosis, No edema Skin: No rashes, No breakdown, No significant lesion Labs LABS Laboratory Tests Test 09/10/16 13:33 09/10/16 17:03 09/10/16 20:22 09/11/16 04:40 Glucose (Fingerstick) 128 mg/dL (70-99) 135 mg/dL (70-99) 145 mg/dL (70-99) White Blood Count 12.9 x10^3/uL (4.0-11.0) Red Blood Count 3.79 x10^6/uL (4.30-5.70) Hemoglobin 12.5 g/dL (13.0-17.5) Hematocrit 35.3 % (39.0-53.0) Mean Corpuscular Volume 93 fL (79-100) Mean Corpuscular Hemoglobin 33 pg (25-35) Mean Corpuscular Hemoglobin Concent 35 g/dL (31-37) Red Cell Distribution Width 12.2 % (11.5-14.5) Platelet Count 231 x10^3/uL (140-400) Neutrophils (%) (Auto) 72 % (31-73) Lymphocytes (%) (Auto) 11 % (24-48) Monocytes (%) (Auto) 17 % (0-9) Eosinophils (%) (Auto) 0 % (0-3) Basophils (%) (Auto) 0 % (0-3) Neutrophils # (Auto) 9.3 x10^3uL (1.8-7.7) Lymphocytes # (Auto) 1.4 x10^3/uL (1.0-4.8) Monocytes # (Auto) 2.2 x10^3/uL (0.0-1.1) Eosinophils # (Auto) 0.0 x10^3/uL (0.0-0.7) Basophils # (Auto) 0.0 x10^3/uL (0.0-0.2) Sodium Level 139 mmol/L (136-145) Potassium Level 4.8 mmol/L (3.5-5.1) Chloride Level 103 mmol/L (98-107) Carbon Dioxide Level 28 mmol/L (21-32) Anion Gap 8 (6-14) Blood Urea Nitrogen 15 mg/dL (8-26) Creatinine 0.9 mg/dL (0.7-1.3) Estimated GFR (Cockcroft-Gault) 87.9 Glucose Level 129 mg/dL (70-99) Calcium Level 9.1 mg/dL (8.5-10.1) Test 09/11/16 07:13 09/11/16 11:59 Glucose (Fingerstick) 142 mg/dL (70-99) 94 mg/dL (70-99) Review of Systems Review of Systems denies N/V/D and HORNE Assessment and Plan Assessmemt and Plan Assessment 1. R Tibfib fracture, closed 2. Chest wall contusio 3. Head injury 4. Laceration of eyebrow 5. Laceration of scalp 6. Depression Plan 1. Surgery for fracture today 2. Lovenox for DVT prophylaxis 3. Continue pain management 4. Appreciate subspecialty input 5. Continue home meds 6. Discussed plan of care with nursing 7. PT/OT 8. Recheck CBC and BMP tomorrow 9. Reviewed imaging: CXR and head CT showed no acute processes, R ankle and tib/ fib XR showed distracted fractures of the distal tibial and fibular diaphysis. 10. Zofran prn for nausea Problems: Comment Review of Relevant I have reviewed the following items sirena (where applicable) has been applied. Labs Laboratory Tests Test 09/09/16 18:00 09/09/16 18:30 09/09/16 20:40 09/10/16 04:20 White Blood Count 17.0 x10^3/uL (4.0-11.0) 10.9 x10^3/uL (4.0-11.0) Red Blood Count 4.72 x10^6/uL (4.30-5.70) 4.25 x10^6/uL (4.30-5.70) Hemoglobin 15.3 g/dL (13.0-17.5) 13.7 g/dL (13.0-17.5) Hematocrit 44.0 % (39.0-53.0) 40.6 % (39.0-53.0) Mean Corpuscular Volume 93 fL (79-100) 95 fL (79-100) Mean Corpuscular Hemoglobin 32 pg (25-35) 32 pg (25-35) Mean Corpuscular Hemoglobin Concent 35 g/dL (31-37) 34 g/dL (31-37) Red Cell Distribution Width 12.4 % (11.5-14.5) 12.3 % (11.5-14.5) Platelet Count 278 x10^3/uL (140-400) 234 x10^3/uL (140-400) Neutrophils (%) (Auto) 78 % (31-73) 59 % (31-73) Lymphocytes (%) (Auto) 8 % (24-48) 20 % (24-48) Monocytes (%) (Auto) 14 % (0-9) 19 % (0-9) Eosinophils (%) (Auto) 0 % (0-3) 2 % (0-3) Basophils (%) (Auto) 0 % (0-3) 0 % (0-3) Neutrophils # (Auto) 13.3 x10^3uL (1.8-7.7) 6.5 x10^3uL (1.8-7.7) Lymphocytes # (Auto) 1.3 x10^3/uL (1.0-4.8) 2.1 x10^3/uL (1.0-4.8) Monocytes # (Auto) 2.3 x10^3/uL (0.0-1.1) 2.1 x10^3/uL (0.0-1.1) Eosinophils # (Auto) 0.0 x10^3/uL (0.0-0.7) 0.2 x10^3/uL (0.0-0.7) Basophils # (Auto) 0.0 x10^3/uL (0.0-0.2) 0.0 x10^3/uL (0.0-0.2) Segmented Neutrophils % 80 % (35-66) Band Neutrophils % 1 % (0-9) Lymphocytes % 10 % (24-48) Monocytes % 9 % (0-10) Platelet Estimate Adequate (ADEQUATE) Sodium Level 143 mmol/L (136-145) 142 mmol/L (136-145) Potassium Level 4.3 mmol/L (3.5-5.1) 4.0 mmol/L (3.5-5.1) Chloride Level 105 mmol/L (98-107) 106 mmol/L (98-107) Carbon Dioxide Level 30 mmol/L (21-32) 32 mmol/L (21-32) Anion Gap 8 (6-14) 4 (6-14) Blood Urea Nitrogen 15 mg/dL (8-26) 16 mg/dL (8-26) Creatinine 1.1 mg/dL (0.7-1.3) 1.0 mg/dL (0.7-1.3) Estimated GFR (Cockcroft-Gault) 69.8 77.9 BUN/Creatinine Ratio 14 (6-20) Glucose Level 113 mg/dL (70-99) 114 mg/dL (70-99) Calcium Level 9.1 mg/dL (8.5-10.1) 8.3 mg/dL (8.5-10.1) Total Bilirubin 0.9 mg/dL (0.2-1.0) Aspartate Amino Transf (AST/SGOT) 80 U/L (15-37) Alanine Aminotransferase (ALT/SGPT) 78 U/L (16-63) Alkaline Phosphatase 101 U/L (46-116) Total Protein 7.3 g/dL (6.4-8.2) Albumin 3.8 g/dL (3.4-5.0) Albumin/Globulin Ratio 1.1 (1.0-1.7) Nasal Screen MRSA (PCR) Negative (Negative) Glucose (Fingerstick) 117 mg/dL (70-99) Test 09/10/16 07:41 09/10/16 13:33 09/10/16 17:03 09/10/16 20:22 Glucose (Fingerstick) 109 mg/dL (70-99) 128 mg/dL (70-99) 135 mg/dL (70-99) 145 mg/dL (70-99) Test 09/11/16 04:40 09/11/16 07:13 09/11/16 11:59 White Blood Count 12.9 x10^3/uL (4.0-11.0) Red Blood Count 3.79 x10^6/uL (4.30-5.70) Hemoglobin 12.5 g/dL (13.0-17.5) Hematocrit 35.3 % (39.0-53.0) Mean Corpuscular Volume 93 fL (79-100) Mean Corpuscular Hemoglobin 33 pg (25-35) Mean Corpuscular Hemoglobin Concent 35 g/dL (31-37) Red Cell Distribution Width 12.2 % (11.5-14.5) Platelet Count 231 x10^3/uL (140-400) Neutrophils (%) (Auto) 72 % (31-73) Lymphocytes (%) (Auto) 11 % (24-48) Monocytes (%) (Auto) 17 % (0-9) Eosinophils (%) (Auto) 0 % (0-3) Basophils (%) (Auto) 0 % (0-3) Neutrophils # (Auto) 9.3 x10^3uL (1.8-7.7) Lymphocytes # (Auto) 1.4 x10^3/uL (1.0-4.8) Monocytes # (Auto) 2.2 x10^3/uL (0.0-1.1) Eosinophils # (Auto) 0.0 x10^3/uL (0.0-0.7) Basophils # (Auto) 0.0 x10^3/uL (0.0-0.2) Sodium Level 139 mmol/L (136-145) Potassium Level 4.8 mmol/L (3.5-5.1) Chloride Level 103 mmol/L (98-107) Carbon Dioxide Level 28 mmol/L (21-32) Anion Gap 8 (6-14) Blood Urea Nitrogen 15 mg/dL (8-26) Creatinine 0.9 mg/dL (0.7-1.3) Estimated GFR (Cockcroft-Gault) 87.9 Glucose Level 129 mg/dL (70-99) Calcium Level 9.1 mg/dL (8.5-10.1) Glucose (Fingerstick) 142 mg/dL (70-99) 94 mg/dL (70-99) Laboratory Tests Test 09/10/16 13:33 09/10/16 17:03 09/10/16 20:22 09/11/16 04:40 Glucose (Fingerstick) 128 mg/dL (70-99) 135 mg/dL (70-99) 145 mg/dL (70-99) White Blood Count 12.9 x10^3/uL (4.0-11.0) Red Blood Count 3.79 x10^6/uL (4.30-5.70) Hemoglobin 12.5 g/dL (13.0-17.5) Hematocrit 35.3 % (39.0-53.0) Mean Corpuscular Volume 93 fL (79-100) Mean Corpuscular Hemoglobin 33 pg (25-35) Mean Corpuscular Hemoglobin Concent 35 g/dL (31-37) Red Cell Distribution Width 12.2 % (11.5-14.5) Platelet Count 231 x10^3/uL (140-400) Neutrophils (%) (Auto) 72 % (31-73) Lymphocytes (%) (Auto) 11 % (24-48) Monocytes (%) (Auto) 17 % (0-9) Eosinophils (%) (Auto) 0 % (0-3) Basophils (%) (Auto) 0 % (0-3) Neutrophils # (Auto) 9.3 x10^3uL (1.8-7.7) Lymphocytes # (Auto) 1.4 x10^3/uL (1.0-4.8) Monocytes # (Auto) 2.2 x10^3/uL (0.0-1.1) Eosinophils # (Auto) 0.0 x10^3/uL (0.0-0.7) Basophils # (Auto) 0.0 x10^3/uL (0.0-0.2) Sodium Level 139 mmol/L (136-145) Potassium Level 4.8 mmol/L (3.5-5.1) Chloride Level 103 mmol/L (98-107) Carbon Dioxide Level 28 mmol/L (21-32) Anion Gap 8 (6-14) Blood Urea Nitrogen 15 mg/dL (8-26) Creatinine 0.9 mg/dL (0.7-1.3) Estimated GFR (Cockcroft-Gault) 87.9 Glucose Level 129 mg/dL (70-99) Calcium Level 9.1 mg/dL (8.5-10.1) Test 09/11/16 07:13 09/11/16 11:59 Glucose (Fingerstick) 142 mg/dL (70-99) 94 mg/dL (70-99) Medications Current Medications Fentanyl Citrate (Fentanyl 2ml Vial) 100 mcg 1X ONCE IV Last administered on 13:41; Start 09/09/16 at 13:30; Stop 09/09/16 at 13:31; Status DC Fentanyl Citrate (Fentanyl 2ml Vial) 50 mcg PRN Q15MIN PRN IV PAIN GREATER THAN 3/10; Start 09/09/16 at 13:30; Stop 09/10/16 at 13:29; Status DC Fentanyl Citrate (Fentanyl 2ml Vial) 100 mcg 1X ONCE IV Last administered on 14:25; Start 09/09/16 at 14:30; Stop 09/09/16 at 14:31; Status DC Sodium Chloride 1,000 ml @ 100 mls/hr Q10H IV Last administered on 09/09/16 15 :50; Start 09/09/16 at 15:00; Stop 09/10/16 at 00:59; Status DC Ondansetron HCl (Zofran) 4 mg PRN Q8HRS PRN IV NAUSEA/VOMITING; Start 09/09/16 at 15:15; Stop 09/10/16 at 13:36; Status DC Fentanyl Citrate (Fentanyl 2ml Vial) 50 mcg PRN Q2HR PRN IV PAIN Last administered on 09/09/16 17:25; Start 09/09/16 at 15:15; Stop 09/09/16 at 18:03; Status DC Ondansetron HCl (Zofran) 4 mg PRN Q6HRS PRN IV NAUSEA/VOMITING; Start 09/10/16 at 07:00; Stop 09/10/16 at 16:02; Status DC Fentanyl Citrate (Fentanyl 2ml Vial) 25 mcg PRN Q5MIN PRN IV MILD PAIN; Start 09/10/16 at 07:00; Stop 09/10/16 at 16:02; Status DC Fentanyl Citrate (Fentanyl 2ml Vial) 50 mcg PRN Q5MIN PRN IV MODERATE PAIN Last administered on 09/10/16 13:12; Start 09/10/16 at 07:00; Stop 09/10/16 at 16: 02; Status DC Morphine Sulfate 1 mg PRN Q10MIN PRN IV SEVERE PAIN; Start 09/10/16 at 07:00; Stop 09/10/16 at 16:02; Status DC Ringer's Solution 1,000 ml @ 30 mls/hr Q24H IV ; Start 09/10/16 at 07:00; Stop 09/10/16 at 16:02; Status DC Lidocaine HCl 2 ml PRN 1X PRN ID PRIOR TO IV START; Start 09/10/16 at 07:00; Stop 09/10/16 at 16:02; Status DC Hydromorphone HCl (Dilaudid) 0.5 mg PRN Q10MIN PRN IV SEV PAIN, Second choice; Start 09/10/16 at 07:00; Stop 09/10/16 at 16:02; Status DC Prochlorperazine Edisylate (Compazine) 5 mg PACU PRN PRN IV NAUSEA, MRX1; Start 09/10/16 at 07:00; Stop 09/10/16 at 16:02; Status DC Ibuprofen (Motrin) 400 mg PRN Q6HRS PRN PO INFLAMMATION Last administered on 08:10; Start 09/09/16 at 18:00 Acetaminophen/ Hydrocodone Bitart (Lortab 10/325) 1 tab PRN Q6HRS PRN PO PAIN Last administered on 09/11/16 05:58; Start 09/09/16 at 18:00 Morphine Sulfate 4 mg PRN Q2HR PRN IV PAIN Last administered on 09/11/16 08:10 ; Start 09/09/16 at 18:00 Acetaminophen (Tylenol) 325 mg PRN Q6HRS PRN PO MILD PAIN / TEMP; Start at 18:15 Hydralazine HCl (Apresoline) 10 mg PRN Q4HRS PRN IVP ELEVATED BP, SEE COMMENTS ; Start 09/09/16 at 18:15 Ondansetron HCl (Zofran) 4 mg PRN Q8HRS PRN IV NAUSEA/VOMITING Last administered on 09/10/16 16:21; Start 09/09/16 at 18:15 Albuterol Sulfate (Ventolin Neb Soln) 2.5 mg PRN Q4HRS PRN NEB SHORTNESS OF BREATH; Start 09/09/16 at 18:15 Enoxaparin Sodium (Lovenox 40mg Syringe) 40 mg Q24H SQ ; Start 09/09/16 at 21:00 ; Status Cancel Cefazolin Sodium 50 ml @ 100 mls/hr 1X ONCE IV Last administered on 09/10/16 10:57; Start 09/10/16 at 06:00; Stop 09/10/16 at 06:29; Status DC Lidocaine HCl 30 ml STK-MED ONCE .ROUTE Last administered on 09/10/16 11:16; Start 09/10/16 at 07:35; Stop 09/10/16 at 16:02; Status DC Bupivacaine HCl (Sensorcaine Mpf 0.5%) 30 ml STK-MED ONCE .ROUTE Last administered on 09/10/16 11:16; Start 09/10/16 at 07:35; Stop 09/10/16 at 07:36; Status DC Dexamethasone Sodium Phosphate (Decadron) 20 mg STK-MED ONCE .ROUTE ; Start 09/10 at 10:08; Stop 09/10/16 at 10:09; Status DC Famotidine (Pepcid) 20 mg STK-MED ONCE .ROUTE ; Start 09/10/16 at 10:08; Stop 09/10/16 at 10:09; Status DC Ondansetron HCl (Zofran) 4 mg STK-MED ONCE .ROUTE ; Start 09/10/16 at 10:08; Stop 09/10/16 at 10:09; Status DC Propofol 20 ml @ As Directed STK-MED ONCE IV ; Start 09/10/16 at 10:08; Stop 09/10 at 10:09; Status DC Midazolam HCl (Versed) 2 mg STK-MED ONCE .ROUTE ; Start 09/10/16 at 10:08; Stop 09/10/16 at 16:02; Status DC Fentanyl Citrate (Fentanyl 2ml Vial) 100 mcg STK-MED ONCE .ROUTE ; Start at 10:08; Stop 09/10/16 at 10:09; Status DC Cefazolin Sodium 50 ml @ As Directed STK-MED ONCE IV ; Start 09/10/16 at 10:29; Stop 09/10/16 at 10:30; Status DC Oxycodone/ Acetaminophen (Percocet 5/325) 1 tab PRN Q4HRS PRN PO PAIN; Start at 10:45; Stop 09/11/16 at 09:17; Status DC Senna/Docusate Sodium (Senna Plus) 1 tab PRN BID PRN PO CONSTIPATION Last administered on 09/11/16 09:52; Start 09/10/16 at 10:45 Enoxaparin Sodium (Lovenox 40mg Syringe) 40 mg Q24H SQ Last administered on 09/11 10:49; Start 09/11/16 at 11:00 Cefazolin Sodium/ Dextrose 50 ml @ 100 mls/hr Q6H IV Last administered on 04:00; Start 09/10/16 at 16:00; Stop 09/11/16 at 04:29; Status DC Morphine Sulfate 10 mg STK-MED ONCE .ROUTE ; Start 09/10/16 at 11:16; Stop at 16:02; Status DC Oxycodone/ Acetaminophen (Percocet 5/325) 1 tab PRN Q4HRS PRN PO PAIN Last administered on 09/11/16 09:53; Start 09/11/16 at 09:15 Bupropion HCl (Wellbutrin Sr) 400 mg DAILY PO Last administered on 09/11/16 10: 48; Start 09/11/16 at 10:00 Active Scripts Active Reported Wellbutrin Sr (Bupropion Hcl) 200 Mg Tablet.er 400 Mg PO DAILY Vitals/I & O Vital Sign - Last 24 Hours 09/10/16 09/10/16 09/10/16 09/10/16 12:38 12:53 13:08 13:12 Temp 98.8 98.4 98.8 98.4 Pulse 110 98 95 Resp 18 20 16 15 B/P (MAP) 195/96 159/93 178/96 Pulse Ox 95 95 97 100 O2 Delivery Simple Mask Simple Mask Nasal Cannula Nasal Cannula O2 Flow Rate 8 8 3 3.0 09/10/16 09/10/16 09/10/16 09/10/16 13:21 13:23 13:38 14:00 Temp 98.7 98.7 Pulse 100 95 94 Resp 16 18 18 B/P (MAP) 145/76 137/70 136/90 (105) Pulse Ox 100 100 97 O2 Delivery Nasal Cannula Nasal Cannula Nasal Cannula Nasal Cannula O2 Flow Rate 2 2 3 3.0 09/10/16 09/10/16 09/10/16 09/10/16 14:12 14:22 14:30 14:45 Temp 97.5 97.7 97.7 97.7 97.5 97.7 97.7 97.7 Pulse 74 94 90 93 Resp 20 20 20 20 B/P (MAP) 149/71 (97) 138/77 (97) 133/79 (97) 136/87 (103) Pulse Ox 100 96 92 91 O2 Delivery Nasal Cannula Nasal Cannula Nasal Cannula Nasal Cannula O2 Flow Rate 3.0 3.0 3.0 3.0 09/10/16 09/10/16 09/10/16 09/10/16 15:00 15:15 15:31 16:00 Temp 98.7 98.7 98.7 98.7 98.7 98.7 98.7 98.7 Pulse 98 94 101 100 Resp 20 20 20 20 B/P (MAP) 138/77 (97) 136/84 (101) 138/80 (99) 148/77 (100) Pulse Ox 96 97 100 94 O2 Delivery Nasal Cannula Nasal Cannula Nasal Cannula Nasal Cannula O2 Flow Rate 3.0 3.0 3.0 3.0 09/10/16 09/10/16 09/10/16 09/10/16 16:21 17:00 18:00 20:20 Temp 98.7 98.7 98.7 98.7 Pulse 125 102 Resp 18 20 20 B/P (MAP) 144/99 (114) 130/86 (101) Pulse Ox 94 94 O2 Delivery Room Air Nasal Cannula Nasal Cannula Room Air O2 Flow Rate 3.0 3.0 09/10/16 09/10/16 09/10/16 09/11/16 20:41 21:15 23:00 03:00 Temp 98.1 97.9 98.1 97.9 Pulse 92 79 Resp 20 20 20 B/P (MAP) 109/50 (69) 91/45 (60) Pulse Ox 94 94 94 94 O2 Delivery Room Air Nasal Cannula Nasal Cannula O2 Flow Rate 3.0 3.0 09/11/16 09/11/16 09/11/16 09/11/16 05:58 06:58 07:00 08:10 Temp 97.3 97.3 Pulse 89 Resp 16 20 4 B/P (MAP) 106/73 (84) Pulse Ox 95 O2 Delivery Room Air Room Air Room Air Room Air 09/11/16 09/11/16 09/11/16 09/11/16 08:15 08:48 09:53 10:53 Resp 16 16 16 O2 Delivery Room Air Room Air Room Air Room Air 09/11/16 11:00 Temp 98.1 98.1 Pulse 91 Resp 20 B/P (MAP) 117/72 (87) Pulse Ox 97 O2 Delivery Room Air Intake and Output 09/10/16 09/10/16 09/11/16 15:00 23:00 07:00 Intake Total 2075 ml 150 ml Balance 2075 ml 150 ml RUSTY MILLS III DO Sep 11, 2016 12:29
[2016-09-11 15:00] VITALS: BP 133/77
[2016-09-11 19:10] VITALS: BP 114/62
[2016-09-11 23:07] VITALS: BP 111/63
[2016-09-12 03:06] VITALS: BP 117/70
[2016-09-12] MEDS: oxyCODONE/APAP 5/325 1 TAB TABLET PO PRN ×3 (04:02→16:08)
[2016-09-12 04:05] LABS: BASO % 1 % (0-3); EOS % 1 % (0-3); HEMATOCRIT 33.3 % (39.0-53.0); HEMOGLOBIN 11.5 g/dL (13.0-17.5); LYMPH # 3.3 x10^3/uL (1.0-4.8); LYMPH % 35 % (24-48); MEAN CORPUSCULAR HEMOGLOBIN 33 pg (25-35); MEAN CORPUSCULAR HGB CONC 35 g/dL (31-37); MEAN CORPUSCULAR VOLUME 95 fL (79-100); MONO % 19 % (0-9); NEUT % 45 % (31-73); PLATELET COUNT 224 x10^3/uL (140-400); RED CELL DISTRIBUTION WIDTH 12.1 % (11.5-14.5); WHITE BLOOD COUNT 9.6 x10^3/uL (4.0-11.0)
[2016-09-12 05:06] LABS: CALCIUM 9.1 mg/dL (8.5-10.1); GFR 77.9; POTASSIUM 3.8 mmol/L (3.5-5.1)
[2016-09-12 07:00] VITALS: BP 119/67
[2016-09-12] MEDS: buPROPion SR 100 MG TABLET.SA. PO SCH ×2 (09:21→10:12)
[2016-09-12] MEDS: SENNOSIDES/DOCUSATE 8.6/50MG TABLET. PO PRN (09:21)
[2016-09-12] MEDS: IBUPROFEN 400 MG TABLET. PO PRN ×2 (09:22→16:07)
[2016-09-12 11:00] VITALS: BP 119/74
[2016-09-12] MEDS: HYDROcodone/APAP 10/325 1 TAB TABLET PO PRN (11:26)
[2016-09-12] MEDS: ENOXAPARIN 40 MG/0.4 ML SYRINGE. SQ SCH (12:30)
--- NOTE | 2016-09-12 12:31 | PDOC ---
ORTHO PROGRESS NOTES Subjective He tells me that he is having a lot of pain in nurse about leaving the hospital. Overall his pain has been getting better since surgery. Moving around a little bit. Vitals Vital Signs Date Time Temp Pulse Resp B/P (MAP) Pulse Ox O2 Delivery O2 Flow Rate FiO2 09/12/16 11:26 Room Air 09/12/16 11:00 97.7 75 20 119/74 (89) 95 97.7 Labs Laboratory Tests Test 09/10/16 13:33 09/10/16 17:03 09/10/16 20:22 09/11/16 04:40 Glucose (Fingerstick) 128 mg/dL (70-99) 135 mg/dL (70-99) 145 mg/dL (70-99) White Blood Count 12.9 x10^3/uL (4.0-11.0) Red Blood Count 3.79 x10^6/uL (4.30-5.70) Hemoglobin 12.5 g/dL (13.0-17.5) Hematocrit 35.3 % (39.0-53.0) Mean Corpuscular Volume 93 fL (79-100) Mean Corpuscular Hemoglobin 33 pg (25-35) Mean Corpuscular Hemoglobin Concent 35 g/dL (31-37) Red Cell Distribution Width 12.2 % (11.5-14.5) Platelet Count 231 x10^3/uL (140-400) Neutrophils (%) (Auto) 72 % (31-73) Lymphocytes (%) (Auto) 11 % (24-48) Monocytes (%) (Auto) 17 % (0-9) Eosinophils (%) (Auto) 0 % (0-3) Basophils (%) (Auto) 0 % (0-3) Neutrophils # (Auto) 9.3 x10^3uL (1.8-7.7) Lymphocytes # (Auto) 1.4 x10^3/uL (1.0-4.8) Monocytes # (Auto) 2.2 x10^3/uL (0.0-1.1) Eosinophils # (Auto) 0.0 x10^3/uL (0.0-0.7) Basophils # (Auto) 0.0 x10^3/uL (0.0-0.2) Sodium Level 139 mmol/L (136-145) Potassium Level 4.8 mmol/L (3.5-5.1) Chloride Level 103 mmol/L (98-107) Carbon Dioxide Level 28 mmol/L (21-32) Anion Gap 8 (6-14) Blood Urea Nitrogen 15 mg/dL (8-26) Creatinine 0.9 mg/dL (0.7-1.3) Estimated GFR (Cockcroft-Gault) 87.9 Glucose Level 129 mg/dL (70-99) Calcium Level 9.1 mg/dL (8.5-10.1) Test 09/11/16 07:13 09/11/16 11:59 09/11/16 16:51 09/11/16 20:26 Glucose (Fingerstick) 142 mg/dL (70-99) 94 mg/dL (70-99) 135 mg/dL (70-99) 110 mg/dL (70-99) Test 09/12/16 03:44 09/12/16 07:37 09/12/16 10:50 White Blood Count 9.6 x10^3/uL (4.0-11.0) Red Blood Count 3.50 x10^6/uL (4.30-5.70) Hemoglobin 11.5 g/dL (13.0-17.5) Hematocrit 33.3 % (39.0-53.0) Mean Corpuscular Volume 95 fL (79-100) Mean Corpuscular Hemoglobin 33 pg (25-35) Mean Corpuscular Hemoglobin Concent 35 g/dL (31-37) Red Cell Distribution Width 12.1 % (11.5-14.5) Platelet Count 224 x10^3/uL (140-400) Neutrophils (%) (Auto) 45 % (31-73) Lymphocytes (%) (Auto) 35 % (24-48) Monocytes (%) (Auto) 19 % (0-9) Eosinophils (%) (Auto) 1 % (0-3) Basophils (%) (Auto) 1 % (0-3) Neutrophils # (Auto) 4.3 x10^3uL (1.8-7.7) Lymphocytes # (Auto) 3.3 x10^3/uL (1.0-4.8) Monocytes # (Auto) 1.8 x10^3/uL (0.0-1.1) Eosinophils # (Auto) 0.1 x10^3/uL (0.0-0.7) Basophils # (Auto) 0.0 x10^3/uL (0.0-0.2) Sodium Level 144 mmol/L (136-145) Potassium Level 3.8 mmol/L (3.5-5.1) Chloride Level 107 mmol/L (98-107) Carbon Dioxide Level 30 mmol/L (21-32) Anion Gap 7 (6-14) Blood Urea Nitrogen 15 mg/dL (8-26) Creatinine 1.0 mg/dL (0.7-1.3) Estimated GFR (Cockcroft-Gault) 77.9 Glucose Level 97 mg/dL (70-99) Calcium Level 9.1 mg/dL (8.5-10.1) Glucose (Fingerstick) 98 mg/dL (70-99) 109 mg/dL (70-99) Laboratory Tests Test 09/11/16 16:51 09/11/16 20:26 09/12/16 03:44 09/12/16 07:37 Glucose (Fingerstick) 135 mg/dL (70-99) 110 mg/dL (70-99) 98 mg/dL (70-99) White Blood Count 9.6 x10^3/uL (4.0-11.0) Red Blood Count 3.50 x10^6/uL (4.30-5.70) Hemoglobin 11.5 g/dL (13.0-17.5) Hematocrit 33.3 % (39.0-53.0) Mean Corpuscular Volume 95 fL (79-100) Mean Corpuscular Hemoglobin 33 pg (25-35) Mean Corpuscular Hemoglobin Concent 35 g/dL (31-37) Red Cell Distribution Width 12.1 % (11.5-14.5) Platelet Count 224 x10^3/uL (140-400) Neutrophils (%) (Auto) 45 % (31-73) Lymphocytes (%) (Auto) 35 % (24-48) Monocytes (%) (Auto) 19 % (0-9) Eosinophils (%) (Auto) 1 % (0-3) Basophils (%) (Auto) 1 % (0-3) Neutrophils # (Auto) 4.3 x10^3uL (1.8-7.7) Lymphocytes # (Auto) 3.3 x10^3/uL (1.0-4.8) Monocytes # (Auto) 1.8 x10^3/uL (0.0-1.1) Eosinophils # (Auto) 0.1 x10^3/uL (0.0-0.7) Basophils # (Auto) 0.0 x10^3/uL (0.0-0.2) Sodium Level 144 mmol/L (136-145) Potassium Level 3.8 mmol/L (3.5-5.1) Chloride Level 107 mmol/L (98-107) Carbon Dioxide Level 30 mmol/L (21-32) Anion Gap 7 (6-14) Blood Urea Nitrogen 15 mg/dL (8-26) Creatinine 1.0 mg/dL (0.7-1.3) Estimated GFR (Cockcroft-Gault) 77.9 Glucose Level 97 mg/dL (70-99) Calcium Level 9.1 mg/dL (8.5-10.1) Test 09/12/16 10:50 Glucose (Fingerstick) 109 mg/dL (70-99) Notes He is awake and alert and lying in bed. He has some bloody drainage around his incisions. All compartments are soft. No pain with passive range of motion. He can wiggle his toes. Toes have good capillary refill Assessment and Plan Postop day 2 I am nailing right tibia fracture. Lovenox times a month. Weight- bear as tolerated. PT and OT. From my standpoint he can be transferred whenever he is comfortable RIGOBERTO ELLIOTT II, MD Sep 12, 2016 12:31
[2016-09-12] MEDS: ONDANSETRON PF 4 MG/2 ML VIAL. IV PRN (12:36)
[2016-09-12] MEDS ORDERED: POLYETHYLENE GLYCOL 3350 17 GM PACKET. PO PRN (14:15)
[2016-09-12] MEDS ORDERED: ACETAMINOPHEN 325 MG TABLET. PO PRN (15:00)
[2016-09-12 15:09] VITALS: BP 119/75
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
[2016-09-12] MEDS ORDERED: ENOX40DI3 SQ (16:06)
[2016-09-12] MEDS ORDERED: OXYC1TAB7 PO (16:06)
[2016-09-12] MEDS ORDERED: POLY17PO3 PO (16:06)
[2016-09-12] MEDS ORDERED: IBUP-1027 PO (16:06)
[2016-09-12] MEDS ORDERED: HYDR-2766 PO (16:06)
== END 2016-09-12 17:00 | DRG 494 ==
LOC: ER 13:06 → EEVIPCON 13:06 → EDBD 13:06 → 4 NORTH 14:50
PROVIDERS: ADMIT Internal Medicine; ATTEND Internal Medicine
PROC: 0HQ1XZZ Repair Face Skin, External Approach (ICD-10-PCS; 2016-09-09)
PROC: 2W3LX1Z Immobilization of Right Lower Extremity using Splint (ICD-10-PCS; 2016-09-09)
PROC: 0HQ0XZZ Repair Scalp Skin, External Approach (ICD-10-PCS; 2016-09-09)
PROC: 0QSG06Z Reposition Right Tibia with Intramedullary Internal Fixation Device, Open Approach (ICD-10-PCS; principal; 2016-09-10 10:20)
DX: S82.391A Other fracture of lower end of right tibia, initial encounter for closed fracture (principal); S20.219A Contusion of unspecified front wall of thorax, initial encounter; S01.119A Laceration without foreign body of unspecified eyelid and periocular area, initial encounter; F32.9 Major depressive disorder, single episode, unspecified; E78.00 Pure hypercholesterolemia, unspecified; S01.01XA Laceration without foreign body of scalp, initial encounter; S82.491A Other fracture of shaft of right fibula, initial encounter for closed fracture; W18.2XXA Fall in (into) shower or empty bathtub, initial encounter; Y93.E1 Activity, personal bathing and showering; Y92.89 Other specified places as the place of occurrence of the external cause; Y99.8 Other external cause status
CPT/HCPCS: 12001; 12011; 29505; 36415; 70450; 71010; 73590; 73610; 76000; 80048; 80053; 82962; 85007; 85027; 87641; 93005; 94250; 96361; 96374; 96376; A6539; J0690; J1100; J1650; J2250; J2270; J2405; J2704; J3010; J3490; J7030; J7120; S0028; 97116; 99291-25